=== PATIENT | female | born 1945 | race Caucasian/White ===

== ENCOUNTER 2020-02-16 16:13 | Emergency (ER) | payer MEDICARE ==
[~2020-02-16] VITALS: Ht 162.6 cm; Wt 77.1 kg
[2020-02-16] MEDS ORDERED: LEVOTHYROXINE112 MCG PO (17:05)
[2020-02-16] MEDS ORDERED: MELOXICAM15 MG PO (17:05)
[2020-02-16] MEDS ORDERED: ATORVASTATIN CA20 MG PO (17:05)
[2020-02-16] MEDS ORDERED: GABAPENTIN300 MG PO (17:05)
[2020-02-16] MEDS ORDERED: XANAX0.5 MG PO (18:46)
--- NOTE | 2020-02-17 21:21 | EKG ---
[facility] [address] [facility] [place], [place] [address] Signed Normal sinus rhythm Normal ECG No previous ECGs available Confirmed by MELISSA AMADO MD ([id number]) on 02/17/2020 9:21:10 PM Electronically Signed By: MELISSA AMADO MD 02/17/202120 PATIENT NAME: LINDSAY PEREZ Electrocardiogram DATE OF : 45 PHYSICIAN: MELISSA AMADO MD REPORT #: [id number] REPORT IS CONFIDENTIAL AND NOT TO BE RELEASED WITHOUT AUTHORIZATION
== END 2020-02-16 19:01 | disposition home or self-care (01) ==
LOC: ED 16:13
DX: R47.89 Other speech disturbances (principal); Z88.8 Allergy status to other drugs, medicaments and biological substances; Z79.899 Other long term (current) drug therapy
CPT/HCPCS: 70450; 70496; 70498; 71045; 80053; 84484; 85025; 85610; 85730; 93005; 93010; 96374; 99285-25; J2060; Q3014; Q9967